=== PATIENT | male | born 1970 | race Caucasian/White ===

== ENCOUNTER → 2018-03-10 | Day surgery (SDC) | payer OTHER ==
[2018-03-09 11:21] LABS: BASOPHILS # (AUTO) 0.1 (0.0-0.1); BASOPHILS % 1.2 % (0.0-1.0); EOSINOPHILS # (AUTO) 0.3 (0.0-0.4); EOSINOPHILS % 3.2 % (0.0-6.0); HEMATOCRIT 42.4 % (38.2-49.6); HEMOGLOBIN 14.1 g/dL (14.0-18.0); LYMPHOCYTES # (AUTO) 2.1 (1.0-3.2); LYMPHOCYTES % 25.1 % (18.0-39.1); MEAN CORPUSCULAR HEMOGLOBIN 29.6 pg (28-32); MEAN CORPUSCULAR HGB CONC 33.3 g/dL (31-35); MEAN CORPUSCULAR VOLUME 88.9 fL (81-99); MONOCYTES # (AUTO) 0.9 (0.2-0.8); MONOCYTES % 10.3 % (4.4-11.3); NEUTROPHILS # (AUTO) 5.1 (2.1-6.9); NEUTROPHILS % 59.8 % (38.7-80.0); PLATELET COUNT 235 x10e3/uL (140-360); RED BLOOD COUNT 4.77 x10e6/uL (4.3-5.7); RED CELL DISTRIBUTION WIDTH 13.2 % (11.7-14.4)
[2018-03-09 11:31] LABS: INR 1.05; PROTHROMBIN TIME 12.9 seconds (11.9-14.5)
[2018-03-09 11:32] LABS: PARTIAL THROMBOPLASTIN TIME 31.6 seconds (23.8-35.5)
[2018-03-09 11:40] LABS: ALANINE AMINOTRANSFERASE 19 IU/L (0-55); ALBUMIN/GLOBULIN RATIO 1.1 (0.8-2.0); ALKALINE PHOSPHATASE 81 IU/L (40-150); ANION GAP 18.1 mmol/L (8-16); BLOOD UREA NITROGEN 20 mg/dL (7-26); BUN/CREATININE RATIO 17 (6-25); CALCIUM 9.8 mg/dL (8.4-10.2); CARBON DIOXIDE 25 mmol/L (22-29); CHLORIDE 105 mmol/L (98-107); EST GLOMERULAR FILTRATION RATE > 60 ML/MIN (60-); GLUCOSE 102 mg/dL (74-118); POTASSIUM 5.1 mmol/L (3.5-5.1); SODIUM 143 mmol/L (136-145)
--- NOTE | 2018-03-09 12:07 | Diagnostic Imaging Report ---
PROCEDURE: Frontal and lateral views of the chest. COMPARISON: None. INDICATIONS: PREOPERATIVE CHEST XRAY FOR KIDNEY STONE SURGERY FINDINGS: Lines/tubes: None. Lungs: The lungs are well inflated and grossly clear. There is no evidence of pneumonia or pulmonary edema. Pleura: There is no pleural effusion or pneumothorax. Heart and mediastinum: Mild to moderate enlargement of the cardiac silhouette. Pulmonary vasculature is normal. Bones: No acute bony abnormality. IMPRESSION: 1. mild to moderate enlargement of the cardiac silhouette, without acute cardiopulmonary abnormalities. Nick Walsh M.D. Dictated by: Nick Walsh M.D. on 03/09/2018 at 12:13 Electronically approved by: Ncik Walsh M.D. on 03/09/2018 at 12:13
[~2018-03-10] MED LIST: AMLODIPINE BESY10 MG PO; CEFOXITIN SOD 1 GM VIAL ONE; DEXAMETHASONE SOD PHOS INJ 4 MG/ML VIAL ONE; FENTANYL CITRATE/PF 100MCG/2 ML INJ ONE; IOPAMIDOL 300MG/ML 50ML INFUS..BTL IV ONE; LABETALOL HCL 20 ML ONE; LIDOCAINE HCL 2% LOCAL INJ 5 ML SDV VIAL INJ ONE; LOSARTAN POTAS100 MG PO; MACROBID 100 M100 MG PO; MEPERIDINE HCL INJ 50 MG/ML INJ ONE; MIDAZOLAM HCL 2 MG/2 ML VIAL ONE; MORPHINE SULFATE 2 MG/ML SYR ONE; ONDANSETRON HCL INJ 2 MG/ML VIAL ONE; PROPOFOL IV EMULSION 10 MG/ML 20 ML VIAL ONE; SEVOFLURANE INHAL SOLN 250 ML PEN BTL ONE; TYLENOL WITH C1 EACH PO
--- NOTE | 2018-03-10 20:01 | Operative Report ---
DATE OF PROCEDURE: March 10, 2018 PREOPERATIVE DIAGNOSIS: Right ureter calculus. POSTOPERATIVE DIAGNOSIS: Right ureter calculus. OPERATION PERFORMED: Right ureteroscopy with Holmium laser lithotripsy and insertion of right 7-[place]izen [place] 26-cm double-pigtail stent. ANESTHESIA: General. INDICATIONS: This patient is a 47-year-old white male who was found to have right-sided renal colic. He had CT scans obtained which showed a 6 to 8 mm stone in the distal third to mid third of the right ureter. For further details, please refer to the history and physical. The procedure was done in the following fashion. DESCRIPTION OF PROCEDURE: The patient was taken to the operating room and placed under general anesthesia and dressed and draped with Hibiclens in lithotomy position in the usual fashion. A preliminary scan of the abdomen was performed using the C-arm, but I really could not see the stone. Some pelvic phleboliths were seen on the left side, but I really could not identify the stone clearly on the right side. The 25-[place] Olympus rigid cystoscope was inserted under direct vision with the 30-degree oblique lens. The sphincter and verumontanum were intact. The prostate was estimated about 30 grams. I actually saw efflux from both ureteral orifices. No bladder tumors or bladder stones were identified. A 6-[place] open-ended catheter was inserted into the right ureteral orifice and retrograde pyelogram obtained. This suggested the presence of a stone as a filling defect in the area of the pelvic brim near the bifurcation of the iliacs. There was negligible hydronephrosis, though, at this time, but the filling defect was identified. My next step was to pass an Amplatz Super Stiff through the 6-[place] open-ended catheter, bypassing the stone and going up into the kidney. I then removed the 6-[place] open-ended catheter. I then passed a 10-[place] double-lumen introducer catheter over the Amplatz Super Stiff. Once this was accomplished, I then was able to insert an Olympus SureGlide guidewire through the open lumen of the 10-[place] double-lumen introducer. This now gave me 2 guidewires going up into the right kidney. I then removed the 10-[place] double-lumen introducer, leaving both guidewires going up into the kidney. At this point in time, I then removed the telescope, leaving both guidewires going through the cystoscope sheath up into the kidney. I then passed the long semirigid Olympus ureteroscope over the SureGlide guidewire and looked my way through the cystoscope sheath up the ureter until I encountered the stone. This revealed a 6 to 8 mm stone in the region of the bifurcation of the iliacs. I then removed the SureGlide guidewire. The stone was then fragmented using the laser fiber. It was the Olympus Empower laser, and I used the 365-micron fiber. It was set at 8 Hz at 1.0 joules, and I used the stone and fragmented it until it went from about 6 to 8 mm in size to about 2 to 3 mm in size. At that point in time, the stone would bounce off the laser when I hit it; so, I felt the best thing to do would be to get that fragment out using a stone basket. Therefore, I used the [place] stone basket and grabbed what was left of the calculus with that and pulled it out through the ureter. My next step was to reinsert the telescope over the Amplatz Super Stiff. Once this was accomplished, I then reinserted the 10-[place] double-lumen introducer over the Amplatz Super Stiff and obtained a retrograde pyelogram through the free lumen. This revealed that there was no longer the persistent filling defect and that there was no evidence of extravasation. I then reinserted a SureGlide guidewire through the open lumen. The 10-[place] double-lumen catheter was then removed, leaving both guidewires going up into the kidney. I then passed an Olympus 7-[place] 26-cm double-pigtail indwelling ureter stent over the SureGlide guidewire. When I could see that the stent was in good position on cystoscopy and fluoroscopy, I removed the SureGlide guidewire. This revealed a good coil of stent in the bladder and a good coil of stent in the kidney adjacent to the Amplatz Super Stiff. The Amplatz Super Stiff was then removed. The bladder was emptied and the cystoscope withdrawn. A final scan of the abdomen with the C-arm revealed the stent to be in good position on the right side and no evidence of extravasation. The patient tolerated the procedure well and left the operating room in good condition. He will be sent home on Macrobid 100 mg p.o. twice daily and on Tylenol No. 3 one p.o. q.6 hours p.r.n. pain, and he will have a return appointment to see me again in 2 weeks. Job#: [id number]
== END | disposition home or self-care (01) ==
LOC: OR 10:26
PROVIDERS: ATTEND Urology
DX: N20.1 Calculus of ureter (principal); I87.8 Other specified disorders of veins; N13.30 Unspecified hydronephrosis; E66.9 Obesity, unspecified; I10 Essential (primary) hypertension; F17.200 Nicotine dependence, unspecified, uncomplicated; Z01.810 Encounter for preprocedural cardiovascular examination; Z01.812 Encounter for preprocedural laboratory examination; Z01.818 Encounter for other preprocedural examination; Z68.42 Body mass index [BMI] 45.0-49.9, adult
CPT/HCPCS: 36415; 52356; 71046; 74420; 80053; 85025; 85610; 85730; 88300; 93005; C1758; C2617; J0694; J1100; J2001; J2175; J2250; J2270; J2405; J3490; Q9967